=== PATIENT | male | born 1955 | race Two or more races ===

== ENCOUNTER → 2023-11-17 06:27 | Day surgery (SDC) | payer OTHER, SELFPAY | LOC: GI 06:27 | PROVIDERS: ATTENDING PHYSICIAN Internal Medicine | DX: Z12.11 Encounter for screening for malignant neoplasm of colon (principal); Z86.010 Personal history of colon polyps; K64.8 Other hemorrhoids; K57.30 Diverticulosis of large intestine without perforation or abscess without bleeding | CPT/HCPCS: G0105 ==

== ENCOUNTER → 2024-02-02 07:34 | Outpatient (REF) | payer OTHER, SELFPAY | LOC: MRI 3T 07:34 | PROVIDERS: ATTENDING PHYSICIAN Otolaryngology; FAMILY PHYSICIAN Family Medicine | DX: H90.A22 Sensorineural hearing loss, unilateral, left ear, with restricted hearing on the contralateral side (principal) | CPT/HCPCS: 70553; A9575 ==

== ENCOUNTER 2024-04-25 05:53 | Day surgery (SDC) | payer OTHER, SELFPAY ==
--- NOTE | 2024-04-06 11:49 | CM ---
Patient is scheduled for an elective R TKR on 04/27/24- he is a same day patient. Spoke with patient prior to surgery. Introduced role of Orthopedic Navigator. Patient reports that he lives with his in a two story home. There are no steps to
enter and a flight of steps to the second floor. He can stay on the first floor if needed. He currently functions independently. He has a cane. He has never had VN services. PCP is Konstantin Mckeon.
Discussed orthopedic program and post surgical plans. Patient will start outpatient PT the day after surgery. He will go to [facility] for outpatient PT.
Patient is in agreement with plan and states that his will be home with him.
Patient will complete online education.
Plan: Orthopedic Navigator will remain available to assist with the care of patient and will reassess discharge needs after surgery.
[2024-04-11 06:51] VITALS: BMI 34.2
[2024-04-11 09:19] LABS: Hematocrit 38.9 % (39.0-52.0); Hemoglobin 14.2 g/dL (13.0-18.0); Mean Corp Hgb Conc. 36.5 g/dL (33.0-37.0); Mean Corpuscular Hgb 31.6 pg (27.0-31.0); Mean Corpuscular Volume 86.4 fL (80.0-94.0); Mean Platelet Volume 12.4 fL (7.4-10.4); Platelet Count 199 10^3/uL (130-400); White Blood Cell Count 6.5 10^3/uL (4.8-10.8)
[2024-04-11 09:45] LABS: ALT (SGPT) 29 U/L (0-50); AST (SGOT) 27 U/L (17-59); Albumin 4.5 g/dl (3.5-5.0); Alkaline Phosphatase 55 U/L (38-126); Blood Urea Nitrogen 14 mg/dl (9-20); Calcium 9.6 mg/dl (8.4-10.2); Carbon Dioxide 25 mmol/L (22-30); Chloride 103 mmol/L (98-107); Estimated Creatinine Clearance 104 ml/min; Glucose 105 mg/dl (70-99); Potassium 4.4 mmol/L (3.5-5.1); Sodium 138 mmol/L (135-145); Total Bilirubin 0.8 mg/dl (0.2-1.3); Total Protein 6.9 g/dl (6.3-8.2); eGFR > 60.00
[2024-04-11 10:49] LABS: Glycohemoglobin (HgbA1c) 5.6 % (4.0-5.6)
[2024-04-18 08:56] VITALS: BMI 34.2
[2024-04-25] VITALS (10 sets, daily range): BP systolic 110–150; BP diastolic 66–84; BMI 34.2
[2024-04-25] MEDS: TYLENOL 650 MG PO (06:37)
[2024-04-25] MEDS: CELEBREX 200 MG PO (06:37)
[2024-04-25] MEDS: NORMOSOL-R 1000 IV (06:37)
--- NOTE | 2024-04-25 09:52 | CM ---
Patient had planned R TKR today. Met with patient at bedside to review discharge plans. Patient will be returning home today. His will be home with him and can assist if needed. On Thursday, 04/27, patient will start outpatient PT at [facility]. Reviewed MD follow up in two weeks and patient believes his appointment is already scheduled.
Patient obtained a rolling walker and cane fro [facility]. His is bringing his walker to the hospital.
[2024-04-25] MEDS: ANCEF 5 IV (10:55)
== END 2024-04-25 11:25 | disposition home or self-care (01) ==
LOC: SDS 05:53
PROVIDERS: ATTENDING PHYSICIAN Specialist; FAMILY PHYSICIAN Family Medicine
DX: M17.11 Unilateral primary osteoarthritis, right knee (principal); E66.9 Obesity, unspecified; Z68.34 Body mass index [BMI] 34.0-34.9, adult
CPT/HCPCS: 27447; 36415; 73560; 80053; 83036; 85027; 87070; 93005; 97162; C1713; C1776

== ENCOUNTER 2025-07-06 06:11 | Day surgery (SDC) | payer OTHER, SELFPAY | END 2025-07-06 09:03 | disposition home or self-care (01) | LOC: GI 06:11 | PROVIDERS: ATTENDING PHYSICIAN Internal Medicine | DX: Z12.11 Encounter for screening for malignant neoplasm of colon (principal); K57.30 Diverticulosis of large intestine without perforation or abscess without bleeding; D12.3 Benign neoplasm of transverse colon; D12.4 Benign neoplasm of descending colon; K63.5 Polyp of colon | CPT/HCPCS: 45385; 45381; 45380; 88305 ==